=== PATIENT | female | born 2000 | race Caucasian/White ===

== ENCOUNTER → 2018-08-27 | Outpatient (CLI) | payer BC ==
[~2018-08-27] MED LIST: AMPDEX5 PO; CYCLAFEM1 EACH PO; DESV50 PO; GABA600 PO; LITH300ER PO; Macrobid 100 M100 MG PO; [UNRECOGNIZED DRUG - REMARK]
== END | disposition home or self-care (01) ==
LOC: PLD 08:08 → LAB SHORT 08:08
DX: D22.5 Melanocytic nevi of trunk (principal); L81.9 Disorder of pigmentation, unspecified
CPT/HCPCS: 88305

== ENCOUNTER 2021-01-16 10:02 | Emergency (ER) | payer BC ==
[~2021-01-16] VITALS: Ht 165.1 cm; Wt 54.4 kg
[2021-01-16 10:52] LABS: BASOPHILS ABSOLUTE AUTO 0.03 K/mm3 (0.00-0.23); BASOPHILS PERCENT AUTO 1 % (0-2); EOSINOPHILS ABSOLUTE AUTO 0.22 K/mm3 (0.00-0.68); EOSINOPHILS PERCENT AUTO 3 % (0-6); Hematocrit 44.5 % (33.0-51.0); Hemoglobin 15.2 g/dL (11.5-16.0); IMMATURE GRAN ABSOLUTE AUTO 0.02 K/mm3 (0.00-0.10); IMMATURE GRAN PERCENT AUTO 0 % (0-1); LYMPHOCYTES ABSOLUTE AUTO 1.44 K/mm3 (0.84-5.20); LYMPHOCYTES PERCENT AUTO 22 % (21-46); MONOCYTES ABSOLUTE AUTO 0.72 K/mm3 (0.16-1.47); MONOCYTES PERCENT AUTO 11 % (4-13); Mean Corpuscular HGB Conc 34.2 g/dL (31.5-36.5); Mean Corpuscular Volume 91 fL (80-100); Mean Platelet Volume 9.6 fL (9.1-12.4); NEUTROPHILS ABSOLUTE AUTO 3.99 K/mm3 (1.96-9.15); NEUTROPHILS PERCENT AUTO 62 % (41-73); Platelet Count 266 K/mm3 (150-400); RDW Coefficient Variation 11.5 % (11.7-14.2); RDW Standard Deviation 38.1 fL (35.1-46.3); Red Blood Cell Count 4.91 M/mm3 (3.80-5.20); White Blood Cell Count 6.42 K/mm3 (4.00-11.30)
[2021-01-16] MEDS ORDERED: PRENATAL TABLE1 EAC2 (11:11)
[2021-01-16 11:29] LABS: Anion Gap 7 mmol/L (6-16); Blood Urea Nitrogen 8 mg/dL (8-24); Bun/Creatinine Ratio 12.4 (12.0-20.0); CO2, Blood 23 mmol/L (21-32); Chloride, Blood 110 mmol/L (98-108); Creatinine, Blood 0.65 mg/dL (0.40-1.00); Glomerular Filtration Rate >60 (60-); Glucose, Blood 99 mg/dL (70-99); Potassium, Blood 3.3 mmol/L (3.5-5.5); Sodium, Blood 140 mmol/L (136-145)
[2021-01-16 11:36] LABS: Beta HCG, Quantitative, Serum 9798 mIU/mL (0-3)
== END 2021-01-16 12:33 | disposition home or self-care (01) ==
LOC: ER 10:02
PROVIDERS: Physician Assistant
DX: O20.0 Threatened abortion (principal); Z3A.01 Less than 8 weeks gestation of pregnancy; Z88.0 Allergy status to penicillin; Z88.2 Allergy status to sulfonamides
CPT/HCPCS: 36415; 76801; 76817; 80048; 84702; 85025; 86900; 86901; 99284-25

== ENCOUNTER → 2021-07-10 | Outpatient (CLI) | payer BC ==
[~2021-07-10] MED LIST changes: +PRENATAL TABLE1 EAC2
== END ==
LOC: LAB SHORT 09:05 → LAB 09:05
DX: R10.9 Unspecified abdominal pain (principal)
CPT/HCPCS: 87086

== ENCOUNTER → 2021-07-14 | Outpatient (CLI) | payer BC ==
[2021-07-14 11:24] LABS: BASOPHILS ABSOLUTE AUTO 0.05 K/mm3 (0.00-0.23); BASOPHILS PERCENT AUTO 1 % (0-2); EOSINOPHILS ABSOLUTE AUTO 0.25 K/mm3 (0.00-0.68); EOSINOPHILS PERCENT AUTO 3 % (0-6); Hematocrit 41.7 % (33.0-51.0); Hemoglobin 14.4 g/dL (11.5-16.0); IMMATURE GRAN ABSOLUTE AUTO 0.03 K/mm3 (0.00-0.10); IMMATURE GRAN PERCENT AUTO 0 % (0-1); LYMPHOCYTES ABSOLUTE AUTO 1.49 K/mm3 (0.84-5.20); LYMPHOCYTES PERCENT AUTO 20 % (21-46); MONOCYTES ABSOLUTE AUTO 0.81 K/mm3 (0.16-1.47); MONOCYTES PERCENT AUTO 11 % (4-13); Mean Corpuscular HGB 31.4 pg (26.0-34.0); Mean Corpuscular HGB Conc 34.5 g/dL (31.5-36.5); Mean Corpuscular Volume 91 fL (80-100); Mean Platelet Volume 9.9 fL (9.1-12.4); NEUTROPHILS ABSOLUTE AUTO 4.82 K/mm3 (1.96-9.15); NEUTROPHILS PERCENT AUTO 65 % (41-73); Platelet Count 235 K/mm3 (150-400); RDW Standard Deviation 39.6 fL (35.1-46.3); Red Blood Cell Count 4.59 M/mm3 (3.80-5.20); White Blood Cell Count 7.45 K/mm3 (4.00-11.30)
[2021-07-14 11:52] LABS: Alanine Aminotransfer (ALT/SGP 402 U/L (12-78); Albumin, Blood 3.7 g/dL (3.4-5.0); Albumin/Globulin Ratio 1.2 (0.8-1.8); Alk Phos 85 U/L (50-136); Anion Gap 4 mmol/L (6-16); Aspartate Aminotrans (AST/SGOT 149 U/L (12-37); Bilirubin, Total 0.5 mg/dL (0.1-1.0); Blood Urea Nitrogen 12 mg/dL (8-24); Bun/Creatinine Ratio 17.2 (12.0-20.0); CO2, Blood 26 mmol/L (21-32); Calcium, Blood 8.9 mg/dL (8.5-10.1); Chloride, Blood 109 mmol/L (98-108); Glomerular Filtration Rate >60 (60-); Glucose, Blood 85 mg/dL (70-99); Potassium, Blood 3.7 mmol/L (3.5-5.5); Sodium, Blood 139 mmol/L (136-145); Total Protein, Blood 6.7 g/dL (6.4-8.2)
[2021-07-16 06:10] LABS: HBSAG SCREEN Negative (Negative); HEP A AB, IGM Negative (Negative); HEP B CORE AB, TOT Negative (Negative); HEP C VIRUS AB 0.1 (0.0-0.9)
== END | disposition home or self-care (01) ==
LOC: LAB 10:41 → LAB SHORT 10:41
PROVIDERS: Physician Assistant
DX: R10.9 Unspecified abdominal pain (principal); R53.83 Other fatigue
CPT/HCPCS: 80053; 82977; 83690; 85025; 86704; 86708; 86803; 87340

== ENCOUNTER 2021-10-02 11:13 | Emergency (ER) | payer BC ==
[~2021-10-02] VITALS: Ht 162.6 cm; Wt 54.4 kg
[2021-10-02] MEDS ORDERED: Aspir 8181 MG PO (11:45)
[2021-10-02 12:05] LABS: BASOPHILS ABSOLUTE AUTO 0.08 K/mm3 (0.00-0.23); BASOPHILS PERCENT AUTO 1 % (0-2); EOSINOPHILS ABSOLUTE AUTO 0.94 K/mm3 (0.00-0.68); EOSINOPHILS PERCENT AUTO 13 % (0-6); Hematocrit 42.5 % (33.0-51.0); Hemoglobin 14.7 g/dL (11.5-16.0); IMMATURE GRAN ABSOLUTE AUTO 0.02 K/mm3 (0.00-0.10); IMMATURE GRAN PERCENT AUTO 0 % (0-1); LYMPHOCYTES ABSOLUTE AUTO 1.65 K/mm3 (0.84-5.20); LYMPHOCYTES PERCENT AUTO 23 % (21-46); MONOCYTES PERCENT AUTO 11 % (4-13); Mean Corpuscular HGB 31.5 pg (26.0-34.0); Mean Corpuscular HGB Conc 34.6 g/dL (31.5-36.5); Mean Corpuscular Volume 91 fL (80-100); Mean Platelet Volume 9.2 fL (9.1-12.4); NEUTROPHILS ABSOLUTE AUTO 3.77 K/mm3 (1.96-9.15); NEUTROPHILS PERCENT AUTO 52 % (41-73); Platelet Count 292 K/mm3 (150-400); RDW Coefficient Variation 11.9 % (11.7-14.2); RDW Standard Deviation 39.8 fL (35.1-46.3); Red Blood Cell Count 4.66 M/mm3 (3.80-5.20); White Blood Cell Count 7.26 K/mm3 (4.00-11.30)
[2021-10-02 12:21] LABS: Alanine Aminotransfer (ALT/SGP 34 U/L (12-78); Albumin, Blood 3.8 g/dL (3.4-5.0); Albumin/Globulin Ratio 1.1 (0.8-1.8); Alk Phos 52 U/L (50-136); Anion Gap 5 mmol/L (6-16); Aspartate Aminotrans (AST/SGOT 22 U/L (12-37); Bilirubin, Total 0.4 mg/dL (0.1-1.0); Blood Urea Nitrogen 15 mg/dL (8-24); Bun/Creatinine Ratio 18.7 (12.0-20.0); CO2, Blood 27 mmol/L (21-32); Calcium, Blood 9.2 mg/dL (8.5-10.1); Chloride, Blood 110 mmol/L (98-108); Globulin, Blood 3.4 g/dL (2.2-4.0); Glomerular Filtration Rate >60 (60-); Glucose, Blood 84 mg/dL (70-99); Potassium, Blood 3.8 mmol/L (3.5-5.5); Sodium, Blood 142 mmol/L (136-145); Total Protein, Blood 7.2 g/dL (6.4-8.2)
[2021-10-02 13:02] LABS: Source, Urine Clean Catch
[2021-10-02 13:04] LABS: Appearance, Urine Cloudy (Clear); Bilirubin, Urine Neg (Neg); Blood, Urine Neg (Neg); Color, Urine Yellow (P-Yellow); Glucose Qualitative, Urine Neg (Neg); Ketones, Urine Neg (Neg); Leukocyte Esterase, Urine Neg (Neg); Nitrite, Urine Neg (Neg); Protein, Urine Neg (Neg); Specific Gravity, Urine 1.015 (1.003-1.022); Urobilinogen, Urine NORM (Normal)
[2021-10-02 13:24] LABS: Red Blood Cells, Urine 0-2 /hpf (0-2); Squamous Epithelial Cells Rare /hpf (Few); White Blood Cells, Urine 0-2 /hpf (0-5)
[2021-10-02 13:25] LABS: Amorphous Heavy (0-Heavy); Bacteria Few /hpf
[2021-10-02] MEDS ORDERED: SUCR1 PO (14:31)
[2021-10-02] MEDS ORDERED: FAMO20 PO (14:31)
== END 2021-10-02 14:39 | disposition home or self-care (01) ==
LOC: ER 11:13
PROVIDERS: Physician Assistant
DX: K29.70 Gastritis, unspecified, without bleeding (principal); Z88.0 Allergy status to penicillin; Z88.2 Allergy status to sulfonamides; Z79.82 Long term (current) use of aspirin
CPT/HCPCS: 36415; 80053; 81001; 81025; 83690; 85025; 99283; A9270

== ENCOUNTER 2023-11-29 19:21 | Inpatient (IN) | payer BC ==
[~2023-11-29] VITALS: Ht 162.6 cm; Wt 68.2 kg
[~2023-11-29 19:21] MED LIST changes: +Aspir 8181 MG PO; +FAMO20 PO; +SUCR1 PO
[2023-11-29 20:55] LABS: BASOPHILS ABSOLUTE AUTO 0.05 K/mm3 (0.00-0.23); BASOPHILS PERCENT AUTO 0 % (0-2); EOSINOPHILS ABSOLUTE AUTO 0.21 K/mm3 (0.00-0.68); EOSINOPHILS PERCENT AUTO 2 % (0-6); Hematocrit 35.8 % (33.0-51.0); Hemoglobin 12.6 g/dL (11.5-16.0); IMMATURE GRAN ABSOLUTE AUTO 0.17 K/mm3 (0.00-0.10); IMMATURE GRAN PERCENT AUTO 2 % (0-1); LYMPHOCYTES ABSOLUTE AUTO 2.07 K/mm3 (0.84-5.20); LYMPHOCYTES PERCENT AUTO 19 % (21-46); MONOCYTES PERCENT AUTO 11 % (4-13); Mean Corpuscular HGB 32.3 pg (26.0-34.0); Mean Corpuscular HGB Conc 35.2 g/dL (31.5-36.5); Mean Corpuscular Volume 92 fL (80-100); Mean Platelet Volume 10.5 fL (9.1-12.4); NEUTROPHILS ABSOLUTE AUTO 7.44 K/mm3 (1.96-9.15); NEUTROPHILS PERCENT AUTO 67 % (41-73); Platelet Count 197 K/mm3 (150-400); RDW Coefficient Variation 12.7 % (11.7-14.2); RDW Standard Deviation 42.3 fL (35.1-46.3); White Blood Cell Count 11.14 K/mm3 (4.00-11.30)
[2023-11-29 21:33] VITALS: BP 129/82
[2023-11-30] VITALS (30 sets, daily range): BP systolic 120–145; BP diastolic 67–91
[2023-12-01] VITALS (20 sets, daily range): BP systolic 128–175; BP diastolic 67–104
--- NOTE | 2023-12-01 05:57 | NUR ---
BP at 0529 was 165/94. Repeat BP 10 minutes later was 175/104. Patient was eating and moving her arm at the time of this BP. Due to positioning of arm, BP was repeated at 0542 with patient holding her arm still, 141/85. Reported BP results to Daisy Stock CNM.
--- NOTE | 2023-12-01 14:17 | NUR ---
1400 assumed care of patient. report fromOdalys Zavala rnc
[2023-12-02 00:42] VITALS: BP 128/82
[2023-12-02 04:24] VITALS: BP 135/73
[2023-12-02 06:14] LABS: Mean Corpuscular HGB 32.3 pg (26.0-34.0); Mean Corpuscular HGB Conc 34.3 g/dL (31.5-36.5); Mean Corpuscular Volume 94 fL (80-100); Mean Platelet Volume 9.7 fL (9.1-12.4); Platelet Count 179 K/mm3 (150-400); RDW Standard Deviation 44.6 fL (35.1-46.3); Red Blood Cell Count 3.72 M/mm3 (3.80-5.20); White Blood Cell Count 14.97 K/mm3 (4.00-11.30)
[2023-12-02 07:55] VITALS: BP 129/63
--- NOTE | 2023-12-02 08:25 | NUR ---
NOTIFIED Daisy BOYCE CNM OF PT'S BP OF 129/63 THIS AM TO CONFIRM THE 100MG LABETALOL SHOULD BE GIVEN. NEW ORDERS TO HOLD MORNING LABETALOL DOSE AND EDUCATE PT TO START TAKING 100MG LABETALOL PO DAILY IN THE EVENING. NO OTHER ORDERS AT THIS TIME.
[2023-12-02] MEDS ORDERED: LABE100 PO (09:22)
[2023-12-02] MEDS ORDERED: IBUP800 PO (09:22)
--- NOTE | 2023-12-02 09:27 | NUR ---
DISCHARGE INSTRUCTIONS, WRITTEN AND VERBAL, GIVEN TO PT. ANSWERED ALL QUESTIONS. IV DISCONTINUED BY PREVIOUS SHIFT. WRITTEN PRESCRIPTION HANDED TO PT AND EDUCATED ON USE OF BP MEDICATION. FOLLOW UP APPOINTMENT SCHEDULED. ALL PERSONAL BELONGINGS RETURNED. PT IS DISCHARGED HOME.
== END 2023-12-02 10:20 | disposition home or self-care (01) | DRG 807 ==
LOC: OBS 19:21 → BC 19:29 → OBS 19:40 → BC 19:42
PROVIDERS: ADMIT Advanced Practice Midwife
PROC: 3E0P7VZ Introduction of Hormone into Female Reproductive, Via Natural or Artificial Opening (ICD-10-PCS; 2023-11-29)
PROC: 3E033VJ Introduction of Other Hormone into Peripheral Vein, Percutaneous Approach (ICD-10-PCS; 2023-11-29)
PROC: 10907ZC Drainage of Amniotic Fluid, Therapeutic from Products of Conception, Via Natural or Artificial Opening (ICD-10-PCS; 2023-11-30)
PROC: 10E0XZZ Delivery of Products of Conception, External Approach (ICD-10-PCS; principal; 2023-12-01)
DX: O36.5930 Maternal care for other known or suspected poor fetal growth, third trimester, not applicable or unspecified (principal); Z37.0 Single live birth; Z3A.37 37 weeks gestation of pregnancy; O76 Abnormality in fetal heart rate and rhythm complicating labor and delivery; Z28.21 Immunization not carried out because of patient refusal
CPT/HCPCS: 36415; 51702; 85025; 85027; 86850; 86900; 86901; A9270; J1885; J2405; J7120

== ENCOUNTER → 2025-03-12 | Outpatient (CLI) | payer OTHER ==
[~2025-03-12] MED LIST changes: +IBUP800 PO; +LABE100 PO
[2025-03-12 16:31] LABS: BASOPHILS ABSOLUTE AUTO 0.04 K/mm3 (0.00-0.23); BASOPHILS PERCENT AUTO 1 % (0-2); EOSINOPHILS PERCENT AUTO 3 % (0-6); Hematocrit 40.3 % (33.0-51.0); Hemoglobin 13.9 g/dL (11.5-16.0); IMMATURE GRAN ABSOLUTE AUTO 0.02 K/mm3 (0.00-0.10); IMMATURE GRAN PERCENT AUTO 0 % (0-1); LYMPHOCYTES PERCENT AUTO 20 % (21-46); MONOCYTES ABSOLUTE AUTO 0.78 K/mm3 (0.16-1.47); MONOCYTES PERCENT AUTO 11 % (4-13); Mean Corpuscular HGB Conc 34.5 g/dL (31.5-36.5); Mean Corpuscular Volume 90 fL (80-100); NEUTROPHILS ABSOLUTE AUTO 4.42 K/mm3 (1.96-9.15); NEUTROPHILS PERCENT AUTO 64 % (41-73); Platelet Count 308 K/mm3 (150-400); RDW Standard Deviation 39.2 fL (35.1-46.3); Red Blood Cell Count 4.49 M/mm3 (3.80-5.20); White Blood Cell Count 6.86 K/mm3 (4.00-11.30)
[2025-03-12 16:53] LABS: Free Thyroxine 1.22 ng/dL (0.70-1.60)
[2025-03-12 17:09] LABS: Triiodothyronine, Free 2.58 pg/mL (2.18-3.98)
[2025-03-14 00:32] LABS: THYROID PEROXIDASE (TPO) AB 382.5 IU/mL (0.0-9.0)
[2025-03-14 09:16] LABS: HEPATITIS B SURFACE ANTIGEN Negative (Negative)
[2025-03-14 18:33] LABS: HIV 1,2 COMBO ANTIGEN/ANTIBODY Negative (Negative)
[2025-03-14 19:56] LABS: HEPATITIS C AB CIA INTERP Negative (Negative); HEPATITIS C ANTIBODY CIA INDEX 0.06 IV
== END ==
LOC: LAB SHORT 14:56 → LAB 14:56
PROVIDERS: Advanced Practice Midwife
DX: Z34.91 Encounter for supervision of normal pregnancy, unspecified, first trimester (principal)
CPT/HCPCS: 81001; 84439; 84443; 84481; 84702; 86376; 86803; 87086; 87340; 87389

== ENCOUNTER → 2025-03-12 | Outpatient (CLI) | payer OTHER ==
[2025-03-12 15:00] LABS: Source, Urine Clean Catch
[2025-03-12 16:16] LABS: Appearance, Urine Clear (Clear); Bilirubin, Urine Neg (Neg); Blood, Urine Neg (Neg); Glucose Qualitative, Urine Neg (Neg); Ketones, Urine Neg (Neg); Leukocyte Esterase, Urine 1+ (Neg); Nitrite, Urine Neg (Neg); Protein, Urine Neg (Neg); Urobilinogen, Urine NORM (Normal)
[2025-03-12 16:34] LABS: Color, Urine Pale Yellow (P-Yellow)
[2025-03-12 16:36] LABS: Bacteria Mod /hpf; Red Blood Cells, Urine 0-2 /hpf (0-2); Squamous Epithelial Cells Few /hpf (Few)
== END ==
LOC: LAB 11:10 → LAB SHORT 11:10
PROVIDERS: Advanced Practice Midwife
DX: Z34.91 Encounter for supervision of normal pregnancy, unspecified, first trimester (principal)
CPT/HCPCS: 81001; 87086

== ENCOUNTER → 2025-04-15 | Outpatient (CLI) | payer OTHER | LOC: LAB SHORT 13:44 → LAB 13:44 | DX: Z34.81 Encounter for supervision of other normal pregnancy, first trimester (principal); E03.9 Hypothyroidism, unspecified ==